=== PATIENT | male | born 1955 | race Hispanic/Latino ===

== ENCOUNTER → 2022-12-29 | Day surgery (SDC) | payer MEDICARE, OTHER ==
[2022-12-26 12:47] LABS: BASOPHILS % 0.3 % (0.0-1.0); EOSINOPHILS # (AUTO) 0.1 (0.0-0.4); EOSINOPHILS % 0.7 % (0.0-6.0); HEMATOCRIT 38.3 % (38.2-49.6); HEMOGLOBIN 12.9 g/dL (14.0-18.0); LYMPHOCYTES # (AUTO) 1.8 (1.0-3.2); LYMPHOCYTES % 25.2 % (18.0-39.1); MEAN CORPUSCULAR HEMOGLOBIN 30.9 pg (28-32); MEAN CORPUSCULAR HGB CONC 33.7 g/dL (31-35); MEAN CORPUSCULAR VOLUME 91.8 fL (81-99); MONOCYTES # (AUTO) 0.6 (0.2-0.8); MONOCYTES % 8.8 % (4.4-11.3); NEUTROPHILS # (AUTO) 4.6 (2.1-6.9); NEUTROPHILS % 64.6 % (38.7-80.0); PLATELET COUNT 255 x10e3/uL (140-360); RED BLOOD COUNT 4.17 x10e6/uL (4.3-5.7); RED CELL DISTRIBUTION WIDTH 13.7 % (11.7-14.4)
[~2022-12-29] MED LIST: AMLODIPINE BESY10 MG PO; FENTANYL CITRATE/PF 100MCG/2 ML INJ ONE; FLOMAX0.4 MG PO; LIDOCAINE HCL 2% LOCAL INJ 5 ML SDV VIAL INJ ONE; METHOTREXATE2.5 MG PO; MULTI-VITAMIN1 EACH PO; OMEPRAZOLE40 MG PO; PRAVASTATIN SOD20 MG PO; PROPOFOL IV EMULSION 10 MG/ML 20 ML VIAL ONE; VIAGRA50 MG PO; VIT D3 PO
[2022-12-29 09:22] VITALS: BP 136/83
== END | disposition home or self-care (01) ==
LOC: OR 06:24
PROVIDERS: ATTEND Internal Medicine Gastroenterology
DX: K29.50 Unspecified chronic gastritis without bleeding (principal); K31.7 Polyp of stomach and duodenum; K21.9 Gastro-esophageal reflux disease without esophagitis; K44.9 Diaphragmatic hernia without obstruction or gangrene; I10 Essential (primary) hypertension; M06.9 Rheumatoid arthritis, unspecified; Z01.810 Encounter for preprocedural cardiovascular examination; Z01.812 Encounter for preprocedural laboratory examination; Z79.899 Other long term (current) drug therapy; Z68.26 Body mass index [BMI] 26.0-26.9, adult; Z87.891 Personal history of nicotine dependence; Z80.0 Family history of malignant neoplasm of digestive organs
CPT/HCPCS: 36415; 43239; 85025; 88304; 88305; 88312; 88342; 93005; J2001

== ENCOUNTER 2024-05-17 19:53 | Observation (INO) | payer MEDICARE ==
[~2024-05-17] VITALS: Ht 172.7 cm; Wt 78.0 kg
[~2024-05-17 19:53] MED LIST changes: -FENTANYL CITRATE/PF 100MCG/2 ML INJ ONE; -LIDOCAINE HCL 2% LOCAL INJ 5 ML SDV VIAL INJ ONE; +LOSARTAN POTAS100 MG PO; +MELOXICAM7.5 MG PO; +OSTEO BI-FLEX1 EAC2 PO; -PROPOFOL IV EMULSION 10 MG/ML 20 ML VIAL ONE; +VIAGRA100 MG PO
[2024-05-17 20:34] VITALS: PULSE 70; RESP 18; TEMP 98.3
[2024-05-17 21:09] LABS: BASOPHILS % 0.3 % (0.0-1.0); EOSINOPHILS # (AUTO) 0.1 (0.0-0.4); EOSINOPHILS % 1.5 % (0.0-6.0); HEMATOCRIT 39.3 % (38.2-49.6); HEMOGLOBIN 12.6 g/dL (14.0-18.0); LYMPHOCYTES # (AUTO) 2.2 (1.0-3.2); LYMPHOCYTES % 32.4 % (18.0-39.1); MEAN CORPUSCULAR HEMOGLOBIN 28.5 pg (28-32); MEAN CORPUSCULAR HGB CONC 32.1 g/dL (31-35); MEAN CORPUSCULAR VOLUME 88.9 fL (81-99); MONOCYTES # (AUTO) 0.6 (0.2-0.8); MONOCYTES % 8.9 % (4.4-11.3); NEUTROPHILS # (AUTO) 3.8 (2.1-6.9); NEUTROPHILS % 56.5 % (38.7-80.0); PLATELET COUNT 211 x10e3/uL (140-360); RED BLOOD COUNT 4.42 x10e6/uL (4.3-5.7); RED CELL DISTRIBUTION WIDTH 14.3 % (11.7-14.4); WHITE BLOOD COUNT 6.75 x10e3/uL (4.8-10.8)
[2024-05-17] MEDS ORDERED: LIDOCAINE VISC 2% SOLN 15 ML UDC ONE (21:18)
[2024-05-17] MEDS ORDERED: BELLADONNA ALK/PHENOBARBITAL 5 ML UDC ONE (21:18)
[2024-05-17] MEDS: DONNATAL/LIDOCAINE/MAALOX 30 ML SUSP PO STA (21:20)
[2024-05-17 21:22] LABS: ALANINE AMINOTRANSFERASE 15 IU/L (0-55); ALBUMIN 4.2 g/dL (3.5-5.0); ALBUMIN/GLOBULIN RATIO 1.4 (0.8-2.0); ALKALINE PHOSPHATASE 59 IU/L (40-150); ANION GAP 14.3 mmol/L (8-16); BILIRUBIN,TOTAL 0.3 mg/dL (0.2-1.2); BLOOD UREA NITROGEN 13 mg/dL (7-26); BUN/CREATININE RATIO 13 (6-25); CALCIUM 9.3 mg/dL (8.4-10.2); CARBON DIOXIDE 24 mmol/L (22-29); CHLORIDE 109 mmol/L (98-107); CREATINE KINASE 64 IU/L (30-200); CREATININE, SERUM 1.03 mg/dL (0.72-1.25); EST GLOMERULAR FILTRATION RATE 79 ML/MIN (>=60); GLUCOSE 109 mg/dL (74-118); POTASSIUM 4.3 mmol/L (3.5-5.1); SODIUM 143 mmol/L (136-145); TOTAL PROTEIN 7.1 g/dL (6.5-8.1)
[2024-05-17] MEDS ORDERED: ONDANSETRON HCL INJ 2MG/ML 2ML 2 MG/ML VIAL ONE (21:30)
[2024-05-17 22:14] LABS: TROPONIN I < 0.001 ng/mL (0-0.300)
[2024-05-17] MEDS: ONDANSETRON HCL INJ 2MG/ML 2ML 2 MG/ML VIAL IV STA (22:24)
[2024-05-17] MEDS ORDERED: IOPAMIDOL 370 MG/ML 100 ML INFUS..BTL INJ ONE (22:51)
[2024-05-17] MEDS ORDERED: PROMETHAZINE 12.5MG/ NACL 0.9% 50 ML ONE (22:57)
[2024-05-17] MEDS: PROMETHAZINE 12.5MG/ NACL 0.9% 12.5 MG/50 ML BAG IV ONE (23:02)
[2024-05-18] VITALS (7 sets, daily range): BP systolic 121–165; BP diastolic 66–85; PULSE 54–70; RESP 18–20; TEMP 98–98.9; O2SAT 96–100
[2024-05-18] MEDS: GLUCAGON FOR INJ 1 MG VIAL IV ONE (00:23)
[2024-05-18] MEDS: Morphine 4mg INJECTION 4 MG/ML INJ IV STA (01:28)
[2024-05-18] MEDS: ONDANSETRON HCL INJ 2MG/ML 2ML 2 MG/ML VIAL IV STA (01:28)
[2024-05-18] MEDS: MAGNESIUM/ALUMINUM/SIMETHICONE 30 ML UDC ONE (01:28)
[2024-05-18] MEDS: SODIUM CHLORIDE 0.9% 1000ML 1,000 ML IV SCH (02:26)
[2024-05-18] MEDS: METOCLOPRAMIDE HCL 10 MG/2ML VIAL IV STA (02:31)
[2024-05-18] MEDS: ONDANSETRON HCL INJ 2MG/ML 2ML 2 MG/ML VIAL IV PRN (03:23)
[2024-05-18] MEDS: Morphine 4mg INJECTION 4 MG/ML INJ IV PRN (03:24)
[2024-05-18] MEDS: METOCLOPRAMIDE HCL 10 MG/2ML VIAL IV SCH (05:34)
[2024-05-18] MEDS ORDERED: LOSARTAN POTASS25 MG PO (06:06)
[2024-05-18] MEDS ORDERED: ASPIRIN CHEW81 MG PO (06:06)
[2024-05-18] MEDS ORDERED: D3-5000125 MCG (06:06)
[2024-05-18] MEDS ORDERED: FOLIC ACID0.4 MG PO (06:06)
[2024-05-18] MEDS ORDERED: TERBINAFINE HC250 MG PO (06:11)
[2024-05-18 10:25] LABS: TROPONIN I 0.003 ng/mL (0-0.300)
[2024-05-18] MEDS ORDERED: ALBUTEROL/IPRATROPIUM 3 ML NEB NEB PRN (16:00)
[2024-05-18] MEDS ORDERED: BENZONATATE 100 MG CAP PO PRN (16:00)
[2024-05-18] MEDS ORDERED: MELATONIN 5 MG TABLET PO PRN (16:00)
[2024-05-18] MEDS ORDERED: DIPHENHYDRAMINE HCL 25 MG CAP PO PRN (16:00)
[2024-05-18] MEDS ORDERED: LIDOCAINE 4% PATCH TP PRN (16:00)
[2024-05-18] MEDS ORDERED: POTASSIUM CHLORIDE 20 MEQ TAB CR PO PRN (16:00)
[2024-05-18] MEDS ORDERED: DEXTROSE 50% SYRINGE 50 ML IV PRN (16:00)
[2024-05-18] MEDS ORDERED: ACETAMINOPHEN 325 MG TAB PO PRN (16:00)
[2024-05-18] MEDS ORDERED: SIMETHICONE 80 MG CHEW PO PRN (16:00)
[2024-05-18] MEDS ORDERED: DOCUSATE SODIUM 100 MG CAP PO PRN (16:00)
[2024-05-18] MEDS ORDERED: HYDRALAZINE HCL 20 MG/ML VIAL IV PRN (16:00)
[2024-05-18] MEDS ORDERED: ENOXAPARIN SOD INJ 40 MG/0.4 ML SYR SC SCH (17:00)
[2024-05-19] VITALS: BP 150/83; PULSE 56; RESP 18; TEMP 98.7; O2SAT 98
[2024-05-19 04:00] VITALS: BP_SYST 149; BP_SYST 150; BP_DIAS 68; BP_DIAS 83; PULSE 56; PULSE 74; RESP 18; TEMP 98.6; TEMP 98.7; O2SAT 96; O2SAT 98
[2024-05-19 06:33] LABS: BASOPHILS % 0.8 % (0.0-1.0); EOSINOPHILS # (AUTO) 0.1 (0.0-0.4); EOSINOPHILS % 2.8 % (0.0-6.0); HEMATOCRIT 35.4 % (38.2-49.6); HEMOGLOBIN 11.4 g/dL (14.0-18.0); LYMPHOCYTES % 38.5 % (18.0-39.1); MEAN CORPUSCULAR HEMOGLOBIN 28.6 pg (28-32); MEAN CORPUSCULAR HGB CONC 32.2 g/dL (31-35); MEAN CORPUSCULAR VOLUME 88.9 fL (81-99); MONOCYTES # (AUTO) 0.5 (0.2-0.8); MONOCYTES % 8.8 % (4.4-11.3); NEUTROPHILS # (AUTO) 2.5 (2.1-6.9); NEUTROPHILS % 48.9 % (38.7-80.0); PLATELET COUNT 180 x10e3/uL (140-360); RED BLOOD COUNT 3.98 x10e6/uL (4.3-5.7); RED CELL DISTRIBUTION WIDTH 14.1 % (11.7-14.4); WHITE BLOOD COUNT 5.09 x10e3/uL (4.8-10.8)
[2024-05-19 07:12] LABS: ALBUMIN 3.3 g/dL (3.5-5.0); ALBUMIN/GLOBULIN RATIO 1.3 (0.8-2.0); BILIRUBIN,TOTAL 0.6 mg/dL (0.2-1.2); CALCIUM 10.1 mg/dL (8.4-10.2); CREATININE, SERUM 0.79 mg/dL (0.72-1.25); TOTAL PROTEIN 5.9 g/dL (6.5-8.1)
[2024-05-19 07:18] LABS: CHOL/HDL RATIO 2.1 (3.9-4.7); MAGNESIUM 1.9 MG/DL (1.3-2.1)
[2024-05-19 07:34] LABS: TROPONIN I 0.009 ng/mL (0-0.300)
[2024-05-19 07:38] LABS: THYROID STIMULATING HORMONE 1.596 uIU/mL (0.350-4.940)
[2024-05-19 08:19] VITALS: BP 162/78; PULSE 64; RESP 18; TEMP 98.6; O2SAT 98
[2024-05-19] MEDS: PRAVASTATIN 20 MG TAB PO SCH (08:20)
[2024-05-19] MEDS: PANTOPRAZOLE SOD 40 MG TABEC PO SCH (08:20)
[2024-05-19] MEDS: TAMSULOSIN HCL 0.4 MG CAP PO SCH (08:20)
[2024-05-19 08:40] VITALS: PULSE 72; RESP 18; O2SAT 97
[2024-05-19] MEDS ORDERED: ASPIRIN 81 MG CHEW TAB PO SCH (09:00)
[2024-05-19 10:30] LABS: POTASSIUM 3.6 mmol/L (3.5-5.1)
[2024-05-19 12:26] VITALS: BP 149/96; PULSE 89; RESP 18; TEMP 98.2; O2SAT 94
[2024-05-19 12:27] LABS: ANION GAP 8.6 mmol/L (8-16)
== END 2024-05-19 18:55 | disposition home or self-care (01) ==
LOC: ER 19:58 → ERHOLD 05-18 00:04 → MED/SURG2 05-18 01:32
PROVIDERS: ADMIT Internal Medicine; ATTEND Internal Medicine
DX: K22.10 Ulcer of esophagus without bleeding (principal); K22.2 Esophageal obstruction; T18.128A Food in esophagus causing other injury, initial encounter; W44.F3XA Food entering into or through a natural orifice, initial encounter; Y92.511 Restaurant or cafe as the place of occurrence of the external cause; K21.00 Gastro-esophageal reflux disease with esophagitis, without bleeding; K29.50 Unspecified chronic gastritis without bleeding; K44.9 Diaphragmatic hernia without obstruction or gangrene; R07.89 Other chest pain; I10 Essential (primary) hypertension; E78.5 Hyperlipidemia, unspecified; K57.30 Diverticulosis of large intestine without perforation or abscess without bleeding; N40.0 Benign prostatic hyperplasia without lower urinary tract symptoms; M19.91 Primary osteoarthritis, unspecified site; Z11.52 Encounter for screening for COVID-19; Z79.899 Other long term (current) drug therapy; Z79.82 Long term (current) use of aspirin
CPT/HCPCS: 36415 ×2; 43239; 71045; 71260; 74177; 80053 ×2; 80061; 82550 ×3; 83036; 83690; 83735; 83880; 84443; 84484 ×3; 85025 ×2; 88305; 88342; 93005 ×2; 94799; 99284; G0378 ×2; J1610; J2270; J2405 ×2; J2470 ×2; J2550; J2765 ×2; J7030 ×2; Q9967; S0164; U0002